=== PATIENT | female | born 1950 | race Caucasian/White ===

== ENCOUNTER 2024-09-25 07:51 | Emergency (ER) | payer BC ==
[~2024-09-25] VITALS: Ht 160 cm; Wt 78.9 kg
[~2024-09-25 07:51] MED LIST: ASPIR 8181 MG PO; NORCO 5-325 TA1 EACH PO; ZIAC 2.5-6.25 MG1 EA PO; ZOFRAN ODT8 MG PO
[2024-09-25 08:27] LABS: BASOPHILS 0.6 % (0.1-1.2); EOSINOPHILS 2.5 % (0.7-5.8); LYMPHOCYTES 26.1 % (19.3-51.7); MCH 29.8 PG (25.6-32.2); MCHC 33.2 g/dL (32.2-35.5); MCV 89.6 fL (79.4-94.8); MONOCYTES 6.9 % (4.7-12.5); NEUTROPHILS 63.8 % (34.0-71.1); RBC 4.03 M/uL (3.93-5.22)
[2024-09-25 08:38] LABS: INR 1.04 (0.80-1.30); PROTIME 12.9 Sec (11.2-14.2)
[2024-09-25 08:42] LABS: ALT (SGPT) 25.0 U/L (14-59); AST (SGOT) 17.0 U/L (15-37); GLOMERULAR FILTRATION RATE,EST 51.0 mL/min (>60); PROTEIN, TOTAL 7.2 g/dL (6.4-8.2); UREA NITROGEN 28.0 mg/dL (7-18)
[2024-09-25] MEDS ORDERED: ACETAMINOPHEN 500 MG TAB PO ONE (09:15)
[2024-09-25 09:19] VITALS: BP 141/57
== END 2024-09-25 09:19 | disposition home or self-care (01) ==
LOC: ED 07:51
PROVIDERS: Emergency Medicine
DX: S00.83XA Contusion of other part of head, initial encounter (principal); I10 Essential (primary) hypertension; Z88.0 Allergy status to penicillin; Z88.5 Allergy status to narcotic agent; Z79.899 Other long term (current) drug therapy; W18.30XA Fall on same level, unspecified, initial encounter
CPT/HCPCS: 36415; 70450; 80053; 85025; 85610; 99284-25; A9270